=== PATIENT | female | born 1955 | race Caucasian/White ===

== ENCOUNTER → 2016-07-01 | Outpatient (REF) | payer BC ==
[2016-07-01 15:41] LABS: BASO % 0.5 % (0.0-1.0); EOS # 0.1 K/mm3 (0.0-0.50); EOS % 2.3 % (0.0-3.0); LARGE UNSTAINED CELL # 0.1 K/mm3 (0.0-0.4); LARGE UNSTAINED CELL % 1.5 % (0.0-4.0); LYMPH # 1.6 K/mm3 (1.5-4.5); LYMPH % 29.4 % (24.0-44.0); MEAN CORPUSCULAR HEMOGLOBIN 29.5 pg (27.0-33.0); MEAN CORPUSCULAR HGB CONC 32.1 g/dl (32.0-36.5); MONO # 0.5 K/mm3 (0.0-0.8); MONO % 9.4 % (0.0-5.0); NEUTROPHILS % 56.9 % (36.0-66.0); PLATELET COUNT, AUTOMATED 296 k/mm3 (150-450); RED CELL DISTRIBUTION WIDTH 13.7 % (11.5-14.5); WHITE BLOOD COUNT 5.2 K/mm3 (4.0-10.0)
[2016-07-01 16:17] LABS: ERYTHROCYTE SEDIMENTATION RATE 3 mm/hr (0-30)
== END ==
LOC: M SFHCPLAZ 13:07
PROVIDERS: ATTEND Internal Medicine Infectious Disease
DX: M25.562 Pain in left knee (principal); Z22.322 Carrier or suspected carrier of Methicillin resistant Staphylococcus aureus

== ENCOUNTER → 2016-09-16 | Outpatient (REF) | payer BC | LOC: M LAB REF 16:27 | PROVIDERS: ATTEND Physician Assistant | DX: L02.01 Cutaneous abscess of face (principal) ==

== ENCOUNTER → 2017-10-07 | Outpatient (REF) | payer BC | LOC: M LAB REF 13:06 | DX: N39.0 Urinary tract infection, site not specified (principal) | CPT/HCPCS: 87086 ==

== ENCOUNTER → 2017-12-22 | Outpatient (CLI) | payer BC | LOC: M LRY 13:59 | DX: S99.922A Unspecified injury of left foot, initial encounter (principal) | CPT/HCPCS: 73630; G0463 ==

== ENCOUNTER → 2019-04-13 | Outpatient (CLI) | payer BC ==
--- NOTE | 2019-04-13 15:57 | REP ---
Chest x-ray: Three views. History: Cough. Findings: The heart is felt to be mildly prominent on frontal and lateral views. Cardiothoracic ratio is borderline and 40.8 percent. Pulmonary vasculature is not increased. Pleural angles are sharp. No evidence of pulmonary edema. No infiltrate is seen. Impression: Mildly prominent heart. Otherwise no acute disease. Electronically Signed by Foreign Olmos MD 04/13/2019 03:48 P
== END ==
LOC: M LRY 15:15
PROVIDERS: ATTEND Nurse Practitioner Family
DX: R05 Cough (principal)

== ENCOUNTER → 2020-12-01 | Outpatient (CLI) | payer BC ==
--- NOTE | 2020-12-02 13:16 | REPVR ---
PROCEDURE INFORMATION: Exam: MR Lumbar Spine Without Contrast Exam date and time: 12/01/2020 1:51 PM Age: 65 years old Clinical indication: Low back pain; Additional info: M54.5-chronic lbp w/o sciatica TECHNIQUE: Imaging protocol: Multiplanar magnetic resonance images of the lumbar spine without intravenous contrast. COMPARISON: No relevant prior studies available. FINDINGS: Vertebrae: Unremarkable. Spinal cord: Normal signal. No cord compression. L1-L2: There is disc space narrowing and desiccation. There are moderate degenerative end plate changes at this level. Disc bulging extends into both neural foramen causing mild bilateral neural foraminal narrowing. There is a small central disc protrusion. There is facet arthropathy and ligamentum flavum hypertrophy. L2-L3: There is disc desiccation. There is mild disc bulging. There is a superimposed left foraminal disc herniation. There is moderate left-sided neuroforaminal narrowing. There is facet arthropathy and ligamentum flavum hypertrophy. L3-L4: There is disc desiccation. Disc bulging extends into both neural foramen causing moderate bilateral neural foraminal narrowing, left worse than right. There is facet arthropathy and ligamentum flavum hypertrophy. L4-L5: There is grade 1 anterior spondylolisthesis at this level. There is degenerative disc disease including disc space narrowing and dessication. There is moderate disc bulging. There is a superimposed left foraminal disc herniation. There is moderate left-sided neuroforaminal narrowing. There is mild right-sided neuroforaminal narrowing. There is exuberant facet arthropathy and ligamentum flavum hypertrophy. There is moderate spinal canal stenosis. L5-S1: There is disc desiccation. Disc bulging extends into both neural foramen causing mild bilateral neural foraminal narrowing. There is facet arthropathy and ligamentum flavum hypertrophy. Soft tissues: Unremarkable. IMPRESSION: Moderate multilevel degenerative changes causing varying degrees of spinal canal and neuroforaminal narrowing. Moderate spinal canal stenosis at L4/5. Exuberant bilateral facet arthropathy at this level. Multilevel neural foraminal narrowing. Please see details above. Electronically signed by: Jean-Pierre Suh On 12/02/2020 13:15:55 PM
== END ==
LOC: M PLARAD 12:05
PROVIDERS: ATTEND Anesthesiology Pain Medicine
DX: M51.9 Unspecified thoracic, thoracolumbar and lumbosacral intervertebral disc disorder (principal); M48.061 Spinal stenosis, lumbar region without neurogenic claudication; M47.816 Spondylosis without myelopathy or radiculopathy, lumbar region; M99.63 Osseous and subluxation stenosis of intervertebral foramina of lumbar region

== ENCOUNTER → 2020-12-01 | Outpatient (CLI) | payer BC ==
--- NOTE | 2020-12-01 14:48 | REP ---
INDICATION: LOW BACK PAIN COMPARISON: None. TECHNIQUE: AP, lateral, flexion/extension, bilateral oblique, and coned-down views. FINDINGS: Lateral views best demonstrate minimal 5 mm of anterolisthesis at the L4-5 level along with facet hypertrophy and minimal disc space narrowing. Moderate facet hypertrophy, endplate sclerosis and disc space narrowing is also identified at the L5-S1 level. Moderate degenerative changes including endplate sclerosis, disc space narrowing and marginal spurring also identified through the visualized lower thoracic through L1-2 level. No acute fracture/compression injury or subluxation. IMPRESSION: Moderate multilevel degenerative spondylosis. <Electronically signed by Jeremias Doss > 12/01/20 [id number]
== END ==
LOC: M PLAIMG 13:10
PROVIDERS: ATTEND Anesthesiology Pain Medicine
DX: M47.817 Spondylosis without myelopathy or radiculopathy, lumbosacral region (principal)

== ENCOUNTER → 2022-01-28 | Outpatient (CLI) | payer BC ==
[~2022-01-28] MED LIST: ASPI81CH33 PO; B-COTAB10 PO; CALC1TAB42 PO; CLIN1GEL3 TOP; CVS-161 PO; CYCL-707; CYTO5TAB8 PO; FLON1SPR NARES; FLUO40CA; FOLI1TAB11 PO; GABA-282; HYDR200T3; HYDR50TAB; LIDO1PAD; MONT10TA97 PO; NAPR-885; NOXI1TAB PO; OXYB5TAB10; PRED25TA PO; PREDOPD; PREV30TA3 PO; RITU10VLL IV; SPIR50TA4; SYNT125T PO; VENTAER INH; VITA400C50 PO; VITA500T11 PO; [UNRECOGNIZED DRUG - CODE] PO; [UNRECOGNIZED DRUG - CODE] PO; [UNRECOGNIZED DRUG - CODE] PO
== END ==
LOC: M RAD 15:31
PROVIDERS: ATTEND Nurse Practitioner Adult Health
DX: R10.32 Left lower quadrant pain (principal); R31.9 Hematuria, unspecified; R32 Unspecified urinary incontinence

== ENCOUNTER → 2022-02-13 | Outpatient (REF) | payer BC ==
[2022-02-13 14:42] LABS: APPEARANCE, URINE MANUAL HAZY (CLEAR); BILIRUBIN, URINE MANUAL NEGATIVE (NEGATIVE); BLOOD URINE MANUAL TRACE (NEGATIVE); COLOR, URINE MANUAL YELLOW (YELLOW); GLUCOSE, URINE (UA) MANUAL NEGATIVE (NEGATIVE); KETONE, URINE MANUAL NEGATIVE (NEGATIVE); LEUKOCYTE ESTERASE, URINE MAN POSITIVE (NEGATIVE); NITRITE, URINE MANUAL POSITIVE (NEGATIVE); PROTEIN, URINE MANUAL TRACE mg/dL (NEGATIVE); SPECIFIC GRAVITY,URINE MANUAL 1.015 (1.002-1.035); UROBILINOGEN, URINE MANUAL NORMAL (NORMAL)
[2022-02-13 15:15] LABS: WBC, URINE 30-40 /hpf (0-3)
[2022-02-13 15:16] LABS: BACTERIA, URINE LARGE AMOUNT; CALCIUM OXALATE CRYSTALS,URINE MOD AMOUNT /hpf; SQUAMOUS EPITHELIAL CELL URINE MOD AMOUNT /hpf (SMALL AMT)
== END ==
LOC: M SMT 13:08
PROVIDERS: ATTEND Physician Assistant
DX: R31.0 Gross hematuria (principal)

== ENCOUNTER → 2022-02-21 | Outpatient (CLI) | payer BC ==
[2022-02-21 18:16] LABS: BASO % 0.7 % (0.0-1.0); EOS # 0.1 10^3/uL (0.0-0.5); EOS % 1.3 % (0.0-3.0); HEMATOCRIT 43.7 % (36.0-47.0); HEMOGLOBIN 13.6 g/dl (12.0-15.5); LYMPH # 1.9 10^3/uL (1.5-5.0); LYMPH % 31.2 % (24.0-44.0); MEAN CORPUSCULAR HEMOGLOBIN 30.4 pg (27.0-33.0); MEAN CORPUSCULAR HGB CONC 31.1 g/dl (32.0-36.5); MEAN CORPUSCULAR VOLUME 97.5 fl (80.0-96.0); MONO # 0.8 10^3/uL (0.0-0.8); MONO % 13.8 % (2.0-8.0); NEUTROPHILS # 3.2 10^3/uL (1.5-8.5); NEUTROPHILS % 52.7 % (36.0-66.0); PLATELET COUNT, AUTOMATED 370 10^3/uL (150-450); RED BLOOD COUNT 4.48 10^6/uL (4.00-5.40)
[2022-02-21 18:53] LABS: ALBUMIN 3.8 G/DL (3.2-5.2); ALT/SGPT 44 U/L (7.0-40); BILIRUBIN,TOTAL 0.4 MG/DL (0.3-1.2); BLOOD UREA NITROGEN 21 MG/DL (9-23); CARBON DIOXIDE LEVEL 31 MMOL/L (20-31); CHLORIDE LEVEL 100 MMOL/L (98-107); CREATININE FOR GFR 0.81 MG/DL (0.55-1.30); GLOMERULAR FILTRATION RATE > 60.0 (>45); GLUCOSE, FASTING 95 MG/DL (74-106); POTASSIUM SERUM 4.2 MMOL/L (3.5-5.1); SODIUM LEVEL 137 MMOL/L (136-145); TOTAL PROTEIN 6.3 G/DL (5.7-8.2)
[2022-02-21 19:54] LABS: FOLATE > 24.00 NG/ML (>5.4)
[2022-02-21 20:13] LABS: ERYTHROCYTE SEDIMENTATION RATE 3 mm/hr (0-30)
== END ==
LOC: M WUC 10:35
DX: M32.19 Other organ or system involvement in systemic lupus erythematosus (principal); Z79.899 Other long term (current) drug therapy; M19.90 Unspecified osteoarthritis, unspecified site

== ENCOUNTER → 2022-02-25 | Outpatient (REF) | payer BC ==
[2022-02-25 18:31] LABS: APPEARANCE, URINE MANUAL HAZY (CLEAR); BILIRUBIN, URINE MANUAL NEGATIVE (NEGATIVE); COLOR, URINE MANUAL YELLOW (YELLOW); GLUCOSE, URINE (UA) MANUAL NEGATIVE (NEGATIVE); KETONE, URINE MANUAL NEGATIVE (NEGATIVE); PROTEIN, URINE MANUAL TRACE mg/dL (NEGATIVE); SPECIFIC GRAVITY,URINE MANUAL 1.015 (1.002-1.035); UROBILINOGEN, URINE MANUAL NORMAL (NORMAL)
[2022-02-25 18:32] LABS: BLOOD URINE MANUAL TRACE (NEGATIVE); LEUKOCYTE ESTERASE, URINE MAN POSITIVE (NEGATIVE); NITRITE, URINE MANUAL NEGATIVE (NEGATIVE)
[2022-02-25 19:03] LABS: BACTERIA, URINE LARGE AMOUNT; HYALINE CAST, URINE NONE SEEN /lpf (0-1); SQUAMOUS EPITHELIAL CELL URINE NONE SEEN /hpf (SMALL AMT); WBC, URINE 30-40 /hpf (0-3)
== END ==
LOC: M SMT 17:06
PROVIDERS: ATTEND Physician Assistant
DX: R30.0 Dysuria (principal)

== ENCOUNTER → 2022-03-26 | Outpatient (REF) | payer MEDICARE ==
[2022-03-26 21:51] LABS: APPEARANCE, URINE MANUAL CLEAR (CLEAR); COLOR, URINE MANUAL DK YELLOW (YELLOW)
[2022-03-26 21:54] LABS: BILIRUBIN, URINE MANUAL NEGATIVE (NEGATIVE); BLOOD URINE MANUAL POSITIVE (NEGATIVE); GLUCOSE, URINE (UA) MANUAL NEGATIVE (NEGATIVE); KETONE, URINE MANUAL NEGATIVE (NEGATIVE); LEUKOCYTE ESTERASE, URINE MAN POSITIVE (NEGATIVE); NITRITE, URINE MANUAL POSITIVE (NEGATIVE); PH,URINE MAN 6.5 UNITS (5.0 - 7.0); PROTEIN, URINE MANUAL NEGATIVE (NEGATIVE); UROBILINOGEN, URINE MANUAL NORMAL (NORMAL)
[2022-03-26 22:03] LABS: SQUAMOUS EPITHELIAL CELL URINE SMALL AMOUNT /hpf (SMALL AMT); WBC, URINE 40-50 /hpf (0-3)
[2022-03-26 22:04] LABS: BACTERIA, URINE LARGE AMOUNT; HYALINE CAST, URINE NONE SEEN /lpf (0-1); TRIPLE PHOSPHATE CRYSTAL,URINE LARGE AMOUNT /hpf
== END ==
LOC: M SMT 17:05
PROVIDERS: ATTEND Nurse Practitioner Women's Health
DX: R30.0 Dysuria (principal)

== ENCOUNTER → 2022-04-09 | Outpatient (REF) | payer MEDICARE, BC ==
[2022-04-09 20:17] LABS: APPEARANCE, URINE MANUAL CLEAR (CLEAR); COLOR, URINE MANUAL YELLOW (YELLOW)
[2022-04-09 20:18] LABS: BILIRUBIN, URINE MANUAL NEGATIVE (NEGATIVE); BLOOD URINE MANUAL TRACE (NEGATIVE); GLUCOSE, URINE (UA) MANUAL NEGATIVE (NEGATIVE); KETONE, URINE MANUAL NEGATIVE (NEGATIVE); LEUKOCYTE ESTERASE, URINE MAN NEGATIVE (NEGATIVE); NITRITE, URINE MANUAL NEGATIVE (NEGATIVE); PROTEIN, URINE MANUAL TRACE mg/dL (NEGATIVE); UROBILINOGEN, URINE MANUAL NORMAL (NORMAL)
[2022-04-09 20:52] LABS: SQUAMOUS EPITHELIAL CELL URINE NONE SEEN /hpf (SMALL AMT)
[2022-04-09 20:53] LABS: BACTERIA, URINE SMALL AMOUNT
== END ==
LOC: M SMT 17:07
PROVIDERS: ATTEND Urology
DX: N39.0 Urinary tract infection, site not specified (principal)

== ENCOUNTER → 2022-04-17 | Outpatient (CLI) | payer MEDICARE, BC | LOC: M RAD 13:29 | PROVIDERS: ATTEND Urology | DX: N39.0 Urinary tract infection, site not specified (principal) ==

== ENCOUNTER → 2022-07-24 | Outpatient (REF) | payer MEDICARE, BC ==
[2022-07-24 20:49] LABS: APPEARANCE, URINE CLEAR (CLEAR); BACTERIA, URINE AUTO NEGATIVE (NEGATIVE); BILIRUBIN, URINE AUTO NEGATIVE (NEGATIVE); BLOOD, URINE BLOOD NEGATIVE (NEGATIVE); COLOR, URINE YELLOW (YELLOW); GLUCOSE, URINE (UA) AUTO NEGATIVE (NEGATIVE); KETONE, URINE AUTO NEGATIVE (NEGATIVE); LEUKOCYTE ESTERASE, URINE AUTO NEGATIVE (NEGATIVE); MUCUS, URINE SMALL (NEGATIVE); NITRITE, URINE AUTO NEGATIVE (NEGATIVE); PROTEIN, URINE AUTO NEGATIVE (NEGATIVE); RBC, URINE AUTO 0 /HPF (0-3); SPECIFIC GRAVITY URINE AUTO 1.016 (1.002-1.035); SQUAMOUS EPITHELIAL CELL UR AU 0 /HPF (0-6); UROBILINOGEN, URINE AUTO 0.2 mg/dL (0.0-2.0); WBC, URINE AUTO 0 /HPF (0-3)
== END ==
LOC: M LAB REF 20:19 → M SMT 20:19
PROVIDERS: ATTEND Physician Assistant
DX: N39.0 Urinary tract infection, site not specified (principal)

== ENCOUNTER → 2022-11-22 | Outpatient (REF) | payer MEDICARE, BC ==
[~2022-11-22] MED LIST changes: -HYDR200T3; +HYDR200T46
[2022-11-22 17:06] LABS: APPEARANCE, URINE HAZY (CLEAR); BACTERIA, URINE AUTO NEGATIVE (NEGATIVE); BILIRUBIN, URINE AUTO NEGATIVE (NEGATIVE); BLOOD, URINE BLOOD NEGATIVE (NEGATIVE); COLOR, URINE AMBER (YELLOW); GLUCOSE, URINE (UA) AUTO NEGATIVE (NEGATIVE); KETONE, URINE AUTO NEGATIVE (NEGATIVE); LEUKOCYTE ESTERASE, URINE AUTO NEGATIVE (NEGATIVE); MUCUS, URINE SMALL (NEGATIVE); NITRITE, URINE AUTO POSITIVE (NEGATIVE); PROTEIN, URINE AUTO NEGATIVE (NEGATIVE); RBC, URINE AUTO 1 /HPF (0-3); SPECIFIC GRAVITY URINE AUTO 1.013 (1.002-1.035); SQUAMOUS EPITHELIAL CELL UR AU 0 /HPF (0-6); WBC, URINE AUTO 0 /HPF (0-3)
== END ==
LOC: M SMT 16:07
PROVIDERS: ATTEND Physician Assistant
DX: R30.0 Dysuria (principal)

== ENCOUNTER → 2023-02-25 | Outpatient (REF) | payer MEDICARE, BC ==
[~2023-02-25] MED LIST changes: -OXYB5TAB10; +OXYB5TAB11
[2023-02-25 12:28] LABS: APPEARANCE, URINE CLEAR (CLEAR); BACTERIA, URINE AUTO NEGATIVE (NEGATIVE); BILIRUBIN, URINE AUTO NEGATIVE (NEGATIVE); BLOOD, URINE BLOOD NEGATIVE (NEGATIVE); COLOR, URINE AMBER (YELLOW); GLUCOSE, URINE (UA) AUTO NEGATIVE (NEGATIVE); KETONE, URINE AUTO NEGATIVE (NEGATIVE); LEUKOCYTE ESTERASE, URINE AUTO NEGATIVE (NEGATIVE); MUCUS, URINE SMALL (NEGATIVE); NITRITE, URINE AUTO NEGATIVE (NEGATIVE); PROTEIN, URINE AUTO NEGATIVE (NEGATIVE); RBC, URINE AUTO 1 /HPF (0-3); SPECIFIC GRAVITY URINE AUTO 1.012 (1.002-1.035); SQUAMOUS EPITHELIAL CELL UR AU 1 /HPF (0-6); UROBILINOGEN, URINE AUTO 0.2 mg/dL (0.0-2.0); WBC, URINE AUTO 0 /HPF (0-3)
== END ==
LOC: M SMT 11:27
PROVIDERS: ATTEND Physician Assistant
DX: R30.0 Dysuria (principal)

== ENCOUNTER → 2024-02-09 | Outpatient (REF) | payer MEDICARE, BC ==
[~2024-02-09] MED LIST changes: +GABA-1172; -GABA-282; -OXYB5TAB11; +OXYB5TAB14
[2024-02-09 13:40] LABS: APPEARANCE, URINE HAZY (CLEAR); BACTERIA, URINE AUTO NEGATIVE (NEGATIVE); BILIRUBIN, URINE AUTO NEGATIVE (NEGATIVE); BLOOD, URINE BLOOD NEGATIVE (NEGATIVE); COLOR, URINE AMBER (YELLOW); GLUCOSE, URINE (UA) AUTO NEGATIVE (NEGATIVE); KETONE, URINE AUTO NEGATIVE (NEGATIVE); LEUKOCYTE ESTERASE, URINE AUTO NEGATIVE (NEGATIVE); NITRITE, URINE AUTO NEGATIVE (NEGATIVE); PROTEIN, URINE AUTO NEGATIVE (NEGATIVE); RBC, URINE AUTO 0 /HPF (0-3); SPECIFIC GRAVITY URINE AUTO 1.014 (1.002-1.035); SQUAMOUS EPITHELIAL CELL UR AU 1 /HPF (0-6); UROBILINOGEN, URINE AUTO 0.2 mg/dL (0.0-2.0); WBC, URINE AUTO 0 /HPF (0-3)
== END ==
LOC: M SMT 12:38
PROVIDERS: ATTEND Nurse Practitioner Family
DX: R32 Unspecified urinary incontinence (principal)

== ENCOUNTER → 2024-08-25 | Outpatient (REF) | payer MEDICARE, BC ==
[2024-08-25 15:43] LABS: APPEARANCE, URINE MANUAL CLEAR (CLEAR); BILIRUBIN, URINE MANUAL OBSCURED (NEGATIVE); BLOOD URINE MANUAL NEGATIVE (NEGATIVE); COLOR, URINE MANUAL AMBER (YELLOW); GLUCOSE, URINE (UA) MANUAL NEGATIVE (NEGATIVE); KETONE, URINE MANUAL NEGATIVE (NEGATIVE); LEUKOCYTE ESTERASE, URINE MAN NEGATIVE (NEGATIVE); NITRITE, URINE MANUAL OBSCURED (NEGATIVE); PROTEIN, URINE MANUAL OBSCURED mg/dL (NEGATIVE); SPECIFIC GRAVITY,URINE MANUAL 1.015 (1.002-1.035); UROBILINOGEN, URINE MANUAL OBSCURED mg/dl (NORMAL)
[2024-08-25 15:57] LABS: BACTERIA, URINE NONE SEEN; RBC, URINE 0-1 /hpf (0-3); SQUAMOUS EPITHELIAL CELL URINE SMALL AMOUNT /hpf (SMALL AMT); WBC, URINE 0-1 /hpf (0-3)
[2024-08-25 15:59] LABS: AMORPHOUS SEDIMENT, URINE SMALL AMOUNT (NEGATIVE); MUCUS, URINE MOD AMOUNT (NEGATIVE)
== END ==
LOC: M SMT 15:10
PROVIDERS: ATTEND Physician Assistant
DX: R32 Unspecified urinary incontinence (principal)

== ENCOUNTER 2025-03-08 16:44 | Inpatient (IN) | payer MEDICARE, BC ==
[~2025-03-08] VITALS: Ht 162.6 cm; Wt 93.4 kg
[~2025-03-08 16:44] MED LIST changes: -CYCL-707; +CYCL-707 PO; -FLUO40CA; +FLUO40CA PO; -GABA-1172; +GABA-1172 PO; -HYDR200T46; +HYDR200T46 PO; -PREDOPD; +PREDOPD OU; -SPIR50TA4; +SPIR50TA4 PO
[2025-03-08] MEDS: MORPHINE 4 MG/ML 1 ML VIAL IV PRN (17:46)
[2025-03-08 18:08] LABS: BASO # 0.1 10^3/uL (0.0-0.2); BASO % 0.5 % (0.0-1.0); EOS # 0.2 10^3/uL (0.0-0.5); EOS % 1.1 % (0.0-3.0); LYMPH # 1.1 10^3/uL (1.5-5.0); LYMPH % 7.0 % (24.0-44.0); MONO # 1.2 10^3/uL (0.0-0.8); MONO % 7.7 % (2.0-8.0); NEUTROPHILS # 12.6 10^3/uL (1.5-8.5); NEUTROPHILS % 83.1 % (36.0-66.0); PLATELET COUNT, AUTOMATED 270 10^3/uL (150-450)
[2025-03-08 18:32] LABS: CALCIUM LEVEL 9.1 MG/DL (8.3-10.6); CARBON DIOXIDE LEVEL 30.0 MMOL/L (20-31); CHLORIDE LEVEL 103.0 MMOL/L (98-107); CREATININE FOR GFR 0.8 MG/DL (0.55-1.30); GLOMERULAR FILTRATION RATE 80.7 (>45); POTASSIUM SERUM 4.0 MMOL/L (3.5-5.1); SODIUM LEVEL 141.0 MMOL/L (136-145)
[2025-03-08] MEDS ORDERED: MOM 30 ML SUSPENSION UDC PO PRN (19:55)
[2025-03-08] MEDS ORDERED: GABA-1172 PO (20:34)
[2025-03-08] MEDS ORDERED: HYDR-3490 PO (20:34)
[2025-03-08] MEDS ORDERED: VITA268C PO (20:34)
[2025-03-08] MEDS ORDERED: CALCD50TA PO (20:34)
[2025-03-08] MEDS ORDERED: LANS30TA9 PO (20:34)
[2025-03-08] MEDS ORDERED: LEVO112T2 PO (20:34)
[2025-03-08] MEDS: MORPHINE 2 MG/ML 1 ML VIAL IV PRN (20:37)
[2025-03-08] MEDS ORDERED: METH2.5T48 PO (20:38)
[2025-03-08] MEDS ORDERED: PRES10CA2 PO (20:38)
[2025-03-08] MEDS ORDERED: MIRA50TA2 PO (20:38)
[2025-03-08] MEDS ORDERED: NABU-71 PO (20:38)
[2025-03-08] MEDS ORDERED: LEFL10TA12 PO (20:38)
[2025-03-08] MEDS ORDERED: LACT1TAB9 PO (20:38)
[2025-03-08] MEDS ORDERED: SOLI10TA PO (20:38)
[2025-03-08] MEDS ORDERED: THERTAB52 PO (20:38)
[2025-03-08] MEDS ORDERED: VITA100093 PO (20:38)
[2025-03-08] MEDS ORDERED: CETI-25 PO (20:38)
[2025-03-08] MEDS ORDERED: HOME MED LIST COMPLETE! XX SCH (20:40)
[2025-03-08] MEDS ORDERED: ALBUTEROL SULFATE 2.5 MG/0.5 ML INH CONCENTRATE NEB SOLN NEB PRN (22:20)
[2025-03-08] MEDS: ACETAMINOPHEN 500 MG TAB PO SCH (22:34)
[2025-03-08] MEDS: GABAPENTIN 300 MG CAP PO SCH (22:34)
[2025-03-08] MEDS: FLUoxetine 20 MG CAP PO SCH (22:35)
[2025-03-08] MEDS: ENOXAPARIN 40 MG/0.4 ML SYRINGE (J1650 PER 10MG) SC SCH (22:35)
[2025-03-09] MEDS: LEVOTHYROXINE 112 MCG TABLET (0.112 MG) PO SCH (05:59)
[2025-03-09 08:06] LABS: PLATELET COUNT, AUTOMATED 266 10^3/uL (150-450)
[2025-03-09] MEDS ORDERED: ALBUTEROL SULFATE 2.5 MG/0.5 ML INH CONCENTRATE NEB SOLN NEB PRN (08:10)
[2025-03-09] MEDS: GABAPENTIN 300 MG CAP PO SCH (08:11)
[2025-03-09] MEDS: FOLIC ACID 1 MG TAB PO SCH (08:11)
[2025-03-09 08:25] LABS: INR 1.0
[2025-03-09 08:45] LABS: ALT/SGPT 41.0 U/L (7.0-40); AST/SGOT 35.0 U/L (<34); CALCIUM LEVEL 8.7 MG/DL (8.3-10.6); CARBON DIOXIDE LEVEL 32.0 MMOL/L (20-31); CHLORIDE LEVEL 101.0 MMOL/L (98-107); CREATININE FOR GFR 0.84 MG/DL (0.55-1.30); GLOMERULAR FILTRATION RATE 76.1 (>45); POTASSIUM SERUM 3.8 MMOL/L (3.5-5.1); SODIUM LEVEL 140.0 MMOL/L (136-145)
[2025-03-09] MEDS: ACETAMINOPHEN *IV* 1,000 MG in IV 1 EA IV SCH (08:54)
[2025-03-09] MEDS: NS (Normal Saline) 0.9% 1,000 ML IV SCH (08:54)
[2025-03-09] MEDS ORDERED: PILL CUTTER 1 EACH XX PRN (09:15)
[2025-03-09] MEDS: MORPHINE 2 MG/ML 1 ML VIAL IV PRN (09:26)
[2025-03-09] MEDS: KETOROLAC 30 MG/ML 1 ML VIAL IV SCH (09:29)
[2025-03-09] MEDS ORDERED: ROCURONIUM BROMIDE 50MG/5ML VIAL As Ordered ONE (12:54)
[2025-03-09] MEDS ORDERED: LIDOCAINE 2% 100 MG/5 ML SDV (FOR ANES.) As Ordered ONE (12:54)
[2025-03-09] MEDS: TRANEXAMIC ACID 100 MG/ML 10ML VIAL As Ordered ONE (12:55)
[2025-03-09] MEDS: VANCOMYCIN 1000MG/20ML VIAL As Ordered ONE (13:33)
[2025-03-09] MEDS ORDERED: ONDANSETRON 4MG/2ML VIAL As Ordered ONE (13:39)
[2025-03-09] MEDS ORDERED: dexAMETHasone 4 MG/ML 1 ML VIAL As Ordered ONE (13:39)
[2025-03-09] MEDS ORDERED: SUGAMMADEX SODIUM 200 MG/2 ML VIAL As Ordered ONE (14:11)
[2025-03-09] MEDS ORDERED: KETOROLAC 30 MG/ML 1 ML VIAL As Ordered ONE (14:11)
[2025-03-09] MEDS ORDERED: ACETAMINOPHEN 1000MG/100ML IV BAG As Ordered ONE (14:18)
[2025-03-09] MEDS ORDERED: HYDROMORPHONE HCL 0.5 MG/0.5 ML SYRINGE IV PRN (14:55)
[2025-03-09] MEDS: ONDANSETRON 4MG/2ML VIAL IV PRN (15:13)
[2025-03-09 15:30] VITALS: BP 131/61; TEMP 98.2; O2SAT 93
[2025-03-09] MEDS: PANTOPRAZOLE 40MG VIAL IV SCH (15:52)
[2025-03-09 16:00] VITALS: BP 125/67; TEMP 98.2; O2SAT 98
[2025-03-09 16:30] VITALS: BP 134/68; TEMP 98.1; O2SAT 91
[2025-03-09] MEDS ORDERED: MIRALAX *UNIT DOSE* 17 GM PACKET PO PRN (16:40)
[2025-03-09 17:45] VITALS: BP 129/69; TEMP 98; O2SAT 94
[2025-03-09 18:45] VITALS: BP 131/71; TEMP 97.7; O2SAT 94
[2025-03-09 19:15] VITALS: BP 123/67; TEMP 97.7; O2SAT 94
[2025-03-09] MEDS: ceFAZolin SOD 1 GM in DEXTROSE 5% (D5W) ADV/MINI-BAG 50 ML IV SCH (21:15)
[2025-03-09] MEDS: CYCLOBENZAPRINE 10 MG TABLET PO SCH (21:16)
[2025-03-09] MEDS: SENNOSIDES/DOCUSATE SODIUM 8.6 MG/50MG TAB PO SCH (21:16)
[2025-03-09] MEDS: LIOTHYRONINE 25 MCG TAB PO SCH (21:17)
[2025-03-09] MEDS: MONTELUKAST 10 MG TAB PO SCH (21:17)
[2025-03-10] VITALS (7 sets, daily range): BP systolic 119–148; BP diastolic 59–70; TEMP 97.9–100; O2SAT 94–100
[2025-03-10 08:53] LABS: BASO # 0.0 10^3/uL (0.0-0.2); BASO % 0.2 % (0.0-1.0); EOS # 0.0 10^3/uL (0.0-0.5); EOS % 0.1 % (0.0-3.0); LYMPH # 0.9 10^3/uL (1.5-5.0); LYMPH % 6.6 % (24.0-44.0); MONO # 1.1 10^3/uL (0.0-0.8); MONO % 8.1 % (2.0-8.0); NEUTROPHILS # 11.1 10^3/uL (1.5-8.5); NEUTROPHILS % 84.6 % (36.0-66.0); PLATELET COUNT, AUTOMATED 211 10^3/uL (150-450)
[2025-03-10] MEDS: ENOXAPARIN 40 MG/0.4 ML SYRINGE (J1650 PER 10MG) SC SCH (09:00)
[2025-03-10 09:18] LABS: CALCIUM LEVEL 8.2 MG/DL (8.3-10.6); CARBON DIOXIDE LEVEL 29.0 MMOL/L (20-31); CHLORIDE LEVEL 103.0 MMOL/L (98-107); CREATININE FOR GFR 0.74 MG/DL (0.55-1.30); GLOMERULAR FILTRATION RATE 88.6 (>45); POTASSIUM SERUM 4.0 MMOL/L (3.5-5.1); SODIUM LEVEL 141.0 MMOL/L (136-145)
[2025-03-10] MEDS: ACETAMINOPHEN 500 MG TAB PO SCH (16:00)
[2025-03-10] MEDS ORDERED: ENOXAPARIN 40 MG/0.4 ML SYRINGE (J1650 PER 10MG) SC SCH (21:00)
[2025-03-11 06:17] VITALS: BP 126/73; TEMP 98; O2SAT 95
[2025-03-11 07:12] LABS: BASO # 0.0 10^3/uL (0.0-0.2); BASO % 0.4 % (0.0-1.0); EOS # 0.2 10^3/uL (0.0-0.5); EOS % 3.4 % (0.0-3.0); LYMPH # 1.5 10^3/uL (1.5-5.0); LYMPH % 20.9 % (24.0-44.0); MONO # 0.7 10^3/uL (0.0-0.8); MONO % 10.3 % (2.0-8.0); NEUTROPHILS # 4.6 10^3/uL (1.5-8.5); NEUTROPHILS % 64.6 % (36.0-66.0); PLATELET COUNT, AUTOMATED 195 10^3/uL (150-450)
[2025-03-11 07:38] LABS: CALCIUM LEVEL 8.1 MG/DL (8.3-10.6); CARBON DIOXIDE LEVEL 28.0 MMOL/L (20-31); CHLORIDE LEVEL 105.0 MMOL/L (98-107); CREATININE FOR GFR 0.84 MG/DL (0.55-1.30); GLOMERULAR FILTRATION RATE 76.1 (>45); POTASSIUM SERUM 3.7 MMOL/L (3.5-5.1); SODIUM LEVEL 143.0 MMOL/L (136-145)
[2025-03-11] MEDS ORDERED: SENN-208 PO (08:20)
[2025-03-11] MEDS ORDERED: ACET-683 PO (08:20)
[2025-03-11] MEDS ORDERED: ASPI81CH33 PO (08:20)
[2025-03-11] MEDS ORDERED: FERR1TAB8 PO (08:20)
[2025-03-11] MEDS ORDERED: OXYC-517 PO (08:20)
[2025-03-11] MEDS ORDERED: CELE1CAP99 PO (08:22)
[2025-03-11] MEDS: FLUZONE HIGH DOSE (65+) 0.5 ML SYRINGE (25-26) IM.IMMUN ONE (10:29)
[2025-03-11 10:45] VITALS: BP 117/59; TEMP 97.9; O2SAT 95
[2025-03-19] MEDS ORDERED: OXYC-517 PO (13:32)
== END 2025-03-11 12:40 | disposition home health service (06) | DRG 481 ==
LOC: M ED 16:44 → EDBD 16:44 → EEVIPCON 19:52 → M ED INP 19:52 → M RR INP 03-09 09:44 → M MS5PR 03-09 15:25
PROVIDERS: ADMIT Student in an Organized Health Care Education/Training Program; ATTEND Internal Medicine Nephrology
PROC: 0QS706Z Reposition Left Upper Femur with Intramedullary Internal Fixation Device, Open Approach (ICD-10-PCS; principal; 2025-03-09 15:00)
DX: S72.142A Displaced intertrochanteric fracture of left femur, initial encounter for closed fracture (principal); D68.51 Activated protein C resistance; M06.9 Rheumatoid arthritis, unspecified; L40.50 Arthropathic psoriasis, unspecified; M32.9 Systemic lupus erythematosus, unspecified; J45.20 Mild intermittent asthma, uncomplicated; E89.0 Postprocedural hypothyroidism; M79.7 Fibromyalgia; E66.9 Obesity, unspecified; K21.9 Gastro-esophageal reflux disease without esophagitis; R03.0 Elevated blood-pressure reading, without diagnosis of hypertension; W10.8XXA Fall (on) (from) other stairs and steps, initial encounter; Y92.018 Other place in single-family (private) house as the place of occurrence of the external cause; Y93.89 Activity, other specified; Z91.013 Allergy to seafood; Z96.653 Presence of artificial knee joint, bilateral; Z79.82 Long term (current) use of aspirin; Z79.890 Hormone replacement therapy; Z79.899 Other long term (current) drug therapy; Z88.2 Allergy status to sulfonamides; Z88.5 Allergy status to narcotic agent; Y99.8 Other external cause status; Z68.35 Body mass index [BMI] 35.0-35.9, adult; Z88.8 Allergy status to other drugs, medicaments and biological substances

== ENCOUNTER → 2025-03-21 | Outpatient (CLI) | payer MEDICARE, BC ==
[~2025-03-21] MED LIST changes: +ACET-683 PO; +CALCD50TA PO; +CELE1CAP99 PO; +CETI-25 PO; +FERR1TAB8 PO; +HYDR-3490 PO; +LACT1TAB9 PO; +LANS30TA9 PO; +LEFL10TA12 PO; +LEVO112T2 PO; +METH2.5T48 PO; +MIRA50TA2 PO; +NABU-71 PO; +OXYC-517 PO; +PRES10CA2 PO; +SENN-208 PO; +SOLI10TA PO; +THERTAB52 PO; +VITA100093 PO; +VITA268C PO
== END ==
LOC: M SOG 07:36
PROVIDERS: ATTEND Physician Assistant
DX: S72.142A Displaced intertrochanteric fracture of left femur, initial encounter for closed fracture (principal); W18.30XA Fall on same level, unspecified, initial encounter; Y92.009 Unspecified place in unspecified non-institutional (private) residence as the place of occurrence of the external cause